=== PATIENT | female | born 1965 ===

== ENCOUNTER 2019-07-02 06:00 | Day surgery (SDC) | payer OTHER ==
[~2019-07-02 06:00] MED LIST: COZAAR25 MG PO; NEURONTIN300 MG PO; RELAFEN PO
== END 2019-07-02 21:35 | disposition home or self-care (01) ==
LOC: CIR.AMB 06:00 → ADM 08:15 → CIR.AMB 17:30
DX: D26.1 Other benign neoplasm of corpus uteri (principal)